=== PATIENT | female | born 1985 | race Caucasian/White ===

== ENCOUNTER 2018-07-14 16:36 | Emergency (ER) | payer SELFPAY ==
[~2018-07-14] VITALS: Ht 152.4 cm; Wt 59.0 kg
[2018-07-14 17:39] LABS: BASOPHILS # (AUTO) 0.1 10^3/uL (0.0-0.1); BASOPHILS % (AUTO) 1 % (0-10); EOSINOPHILS # (AUTO) 0.5 10^3/uL (0.0-0.3); EOSINOPHILS % (AUTO) 4 % (0-10); HEMATOCRIT 39 % (35-52); HEMOGLOBIN 13.2 G/DL (11.5-16.0); LYMPHOCYTES # (AUTO) 3.5 X 10^3 (1.0-4.0); LYMPHOCYTES % (AUTO) 33 % (12-44); MEAN CORPUSCULAR HEMOGLOBIN 30 PG (25-34); MEAN CORPUSCULAR HGB CONC 34 G/DL (32-36); MEAN CORPUSCULAR VOLUME 87 FL (80-99); MEAN PLATELET VOLUME 9.9 FL (7.4-10.4); MONOCYTES # (AUTO) 0.6 X 10^3 (0.0-1.0); MONOCYTES % (AUTO) 6 % (0-12); NEUTROPHILS % (AUTO) 57 % (42-75); PLATELET COUNT 372 10^3/uL (130-400); RED BLOOD COUNT 4.45 10^6/uL (4.35-5.85); RED CELL DISTRIBUTION WIDTH 13.9 % (10.0-14.5); WHITE BLOOD COUNT 10.6 10^3/uL (4.3-11.0)
[2018-07-14 17:44] LABS: BILIRUBIN,URINE NEGATIVE (NEGATIVE); COLOR,URINE YELLOW; GLUCOSE, URINE (UA) NEGATIVE (NEGATIVE); KETONES,URINE NEGATIVE (NEGATIVE); LEUKOCYTE ESTERASE ,URINE 2+ (NEGATIVE); NITRITE,URINE NEGATIVE (NEGATIVE); PH,URINE 6 (5-9); PROTEIN,URINE 1+ (NEGATIVE); UROBILINOGEN,URINE NORMAL (NORMAL)
[2018-07-14 17:45] LABS: BACTERIA,URINE TRACE /HPF; CLARITY,URINE SLIGHTLY CLOUDY; RBC,URINE RARE /HPF; SQUAMOUS EPITHELIAL CELL,UR 25-50 /HPF
[2018-07-14 17:54] LABS: ALANINE AMINOTRANSFERASE 26 U/L (0-55); ALBUMIN 4.7 GM/DL (3.2-4.5); ALKALINE PHOSPHATASE 65 U/L (40-136); BILIRUBIN,TOTAL 0.3 MG/DL (0.1-1.0); BUN/CREATININE RATIO 16; CALCIUM 9.5 MG/DL (8.5-10.1); CARBON DIOXIDE 26 MMOL/L (21-32); CHLORIDE 103 MMOL/L (98-107); CREATININE SERUM 0.77 MG/DL (0.60-1.30); GFR ESTIMATED > 60; GLUCOSE 87 MG/DL (70-105); LIPASE 19 U/L (8-78); POTASSIUM 4.6 MMOL/L (3.6-5.0); SODIUM 138 MMOL/L (135-145); TOTAL PROTEIN 8.1 GM/DL (6.4-8.2)
--- NOTE | 2018-07-14 17:58 | ED GU-Female ---
General Chief Complaint: Abdominal/GI Problems Stated Complaint: BACK PAIN,ABD PAIN Nursing Triage Note: pt presents to ed with complaints of lower badominal pain and back pain x 2 days along with OJEDA. Pt reports she had a spontaneous miscarriage aprox 15 days ago at aprox 5 weeks along. Reports she was seen at a hospital in [place] and given "pills" to help. Pt reprots she is still having some small amount of bleeding but denies odor. Nursing Sepsis Screen: No Definite Risk Source: patient, spouse Exam Limitations: language barrier (language line used to communicate with the patient.) History of Present Illness Date Seen by Provider: Jul 14, 2018 Time Seen by Provider: 17:57 Initial Comments 33-year-old female patient presents to the emergency department with complaints of lower abdominal pain and right upper back pain for 2 days along with a headache. Patient reports having a spontaneous miscarriage approximately 15 days ago with subsequent D&C for retained products of conception while in [place]. She states the hospital gave her ibuprofen to take for the pain. She is currently traveling with her significant other to [place]. She does have a small amount of vaginal bleeding. Patient states she has not been eating and drinking much due to nausea the last 2 days. Timing/Duration: getting worse, other (2 day onset) Severity/Quality: aching, cramping Location: other (lower abdominal pain and right upper back pain) Radiation: other (right upper back.) Activities at Onset: none Prior Genitourinary Problems: none Modifying Factors: Improves With Breathing (right upper back pain worse with taking a deep breath.); Worsens With Palpation (abdominal pain worse with palpation.) Associated Symptoms: abdominal pain; No diaphoresis, No dysuria, No fever/ chills, No loss of bladder control, No lower back pain, No mass, No polyuria, No swelling, No urinary frequency Allergies and Home Medications Allergies Coded Allergies: No Known Drug Allergies (Unverified , 07/14/18) Home Medications Cephalexin 500 Mg Capsule, 500 MG PO TID Prescribed by: YANELIS COLEMAN on 07/14/182026 Naproxen 500 Mg Tablet, 500 MG PO BID PRN for pain Prescribed by: YANELIS COLEMAN on 07/14/182026 Ondansetron 8 Mg Tab.rapdis, 8 MG PO Q6H PRN for NAUSEA/VOMITING Prescribed by: YANELIS COLEMAN on 07/14/182026 Phenazopyridine HCl 200 Mg Tablet, 1 TAB PO TID Prescribed by: YANELIS COLEMAN on 07/14/182026 Patient Home Medication List Home Medication List Reviewed: Yes Review of Systems Review of Systems Constitutional: No chills, No diaphoresis; dizziness (mild dizziness and lightheadedness with standing); No fever, No malaise Respiratory: see HPI; No cough, No dyspnea on exertion, No orthopnea, No phlegm , No short of breath, No wheezing Cardiovascular: No chest pain, No palpitations, No syncope Gastrointestinal: see HPI, abdominal pain; No constipation, No diarrhea; loss of appetite; No melena; nausea; No vomiting Genitourinary: denies burning, denies discharge, denies dysuria, denies frequency, denies flank pain, denies hematuria; pain (suprapubic abdominal pain. ), other (slight vaginal bleeding.) : No Musculoskeletal: see HPI, back pain Skin: no symptoms reported Psychiatric/Neurological: No Symptoms Reported All Other Systemes Reviewed Negative Unless Noted: Yes (Negative excepted noted.) Past Degtnwc-Jjeaij-Lulefz Hx Past Med/Social Hx: Reviewed and Corrections made Patient Social History Alcohol Use: Denies Use Recreational Drug Use: No Smoking Status: Current Everyday Smoker Type Used: Cigarettes Recent Foreign Travel: No Contact w/Someone Who Travel: No Recent Infectious Disease Expo: No Recent Hopitalizations: No Past Medical History Surgeries: Yes (D&C 15 days ago for spontaneous miscarriage.) Respiratory: No Cardiac: No Neurological: No : No Hx : 1 Hx Para: 0 Hx Total # of Abortions (Sp): 1 Genitourinary: No Gastrointestinal: No Musculoskeletal: No Endocrine: No HEENT: No Cancer: No Psychosocial: No Integumentary: No Blood Disorders: No Family Medical History Reviewed Nursing Family Hx No Pertinent Family Hx Physical Exam Vital Signs Vital Signs - First Documented 07/14/18 17:11 Temp 97.5 Pulse 67 Resp 20 B/P (MAP) 118/83 (95) Pulse Ox 99 Capillary Refill : Less Than 3 Seconds Height, Weight, BMI Height: 5'" Weight: 130lbs. oz. 58.946873qm; BMI Method:Stated General Appearance: WD/WN, no apparent distress HEENT: PERRL/EOMI, pharynx normal Neck: supple, normal inspection Cardiovascular: normal peripheral pulses, regular rate, rhythm, no edema, no gallop, no murmur Respiratory: lungs clear, normal breath sounds, no respiratory distress, no accessory muscle use Gastrointestinal: normal bowel sounds, soft, no organomegaly, no pulsatile mass ; No distended; guarding (mild guarding to the RUQ and suprapubically); No rebound; tenderness (generalized abdominal tenderness) Back: normal inspection, no CVA tenderness, other (very mild TTP to the right upper back.) Extremities: no pedal edema, no calf tenderness, normal capillary refill Neurologic/Psychiatric: alert, normal mood/affect, oriented x 3 Skin: normal color, warm/dry Progress/Results/Core Measures Suspected Sepsis Recent Fever Within 48 Hours: No Infection Criteria Present: None New/Unexplained Altered Menta: No Sepsis Screen: No Definite Risk SIRS Temperature:97.5 Pulse: 67 Respiratory Rate: 20 Laboratory Tests 07/14/18 17:23: White Blood Count 10.6 Blood Pressure 118 /83 Mean: 95 Laboratory Tests 07/14/18 17:23: Creatinine 0.77, Platelet Count 372, Total Bilirubin 0.3 Results/Orders Lab Results Laboratory Tests Test 07/14/18 17:23 07/14/18 17:29 Range/Units White Blood Count 10.6 4.3-11.0 10^3/uL Red Blood Count 4.45 4.35-5.85 10^6/uL Hemoglobin 13.2 11.5-16.0 G/DL Hematocrit 39 35-52 % Mean Corpuscular Volume 87 80-99 FL Mean Corpuscular Hemoglobin 30 25-34 PG Mean Corpuscular Hemoglobin Concent 34 32-36 G/DL Red Cell Distribution Width 13.9 10.0-14.5 % Platelet Count 372 130-400 10^3/uL Mean Platelet Volume 9.9 7.4-10.4 FL Neutrophils (%) (Auto) 57 42-75 % Lymphocytes (%) (Auto) 33 12-44 % Monocytes (%) (Auto) 6 0-12 % Eosinophils (%) (Auto) 4 0-10 % Basophils (%) (Auto) 1 0-10 % Neutrophils # (Auto) 6.0 1.8-7.8 X 10^3 Lymphocytes # (Auto) 3.5 1.0-4.0 X 10^3 Monocytes # (Auto) 0.6 0.0-1.0 X 10^3 Eosinophils # (Auto) 0.5 H 0.0-0.3 10^3/uL Basophils # (Auto) 0.1 0.0-0.1 10^3/uL Sodium Level 138 135-145 MMOL/L Potassium Level 4.6 3.6-5.0 MMOL/L Chloride Level 103 98-107 MMOL/L Carbon Dioxide Level 26 21-32 MMOL/L Anion Gap 9 5-14 MMOL/L Blood Urea Nitrogen 12 7-18 MG/DL Creatinine 0.77 0.60-1.30 MG/DL Estimat Glomerular Filtration Rate > 60 BUN/Creatinine Ratio 16 Glucose Level 87 70-105 MG/DL Calcium Level 9.5 8.5-10.1 MG/DL Corrected Calcium 8.5-10.1 MG/DL Total Bilirubin 0.3 0.1-1.0 MG/DL Aspartate Amino Transf (AST/SGOT) 17 5-34 U/L Alanine Aminotransferase (ALT/SGPT) 26 0-55 U/L Alkaline Phosphatase 65 40-136 U/L Total Protein 8.1 6.4-8.2 GM/DL Albumin 4.7 H 3.2-4.5 GM/DL Lipase 19 8-78 U/L Human Chorionic Gonadotropin, Quant 56 H <5 MIU/ML Urine Color YELLOW Urine Clarity SLIGHTLY CLOUDY Urine pH 6 5-9 Urine Specific [place] 1.010 L 1.016-1.022 Urine Protein 1+ H NEGATIVE Urine Glucose (UA) NEGATIVE NEGATIVE Urine Ketones NEGATIVE NEGATIVE Urine Nitrite NEGATIVE NEGATIVE Urine Bilirubin NEGATIVE NEGATIVE Urine Urobilinogen NORMAL NORMAL MG/DL Urine Leukocyte Esterase 2+ H NEGATIVE Urine RBC (Auto) 5+ H NEGATIVE Urine RBC RARE /HPF Urine WBC 5-10 H /HPF Urine Squamous Epithelial Cells 25-50 H /HPF Urine Crystals NONE /LPF Urine Bacteria TRACE /HPF Urine Casts NONE /LPF Urine Mucus NEGATIVE /LPF Urine Culture Indicated NO My Orders Orders - YANELIS COLEMAN Urine Bedside (07/14/18 17:24) Hcg,Quantitative (07/14/18 17:56) Ct Abdomen/Pelvis W (07/14/18 18:24) Saline Lock/Iv-Start (07/14/18 18:24) Ketorolac Injection (Toradol Injection) (07/14/18 18:24) Ondansetron Injection (Zofran Injectio (07/14/18 18:30) Ns Iv 1000 Ml (Sodium Chloride 0.9%) (07/14/18 18:24) Chest Pa/Lat (2 View) (07/14/18 18:25) Iohexol Injection (Omnipaque 350 Mg/Ml 1 (07/14/18 18:45) Contrast Received (Contrast Received) (07/14/18 18:45) Ns (Ivpb) (Sodium Chloride 0.9% Ivpb Bag (07/14/18 18:45) Urine Culture (07/14/18 20:29) Rx-Ondansetron Po (Rx-Zofran Po) (07/14/18 20:41) Rx-Tramadol Hcl (Rx-Ultram) (07/14/18 20:41) Cephalexin Capsule (Keflex Capsule) (07/14/18 20:45) Medications Given in ED Current Medications Medications Dose Ordered Sig/Ramy Route Start Time Stop Time Status Last Admin Dose Admin Cephalexin HCl 500 mg ONCE ONCE PO 07/14/18 20:45 07/14/18 20:46 DC 07/14/18 20:51 500 MG Ondansetron HCl 4 mg ONCE ONCE IVP 07/14/18 18:30 07/14/18 18:31 DC 18 18:35 4 MG Sodium Chloride 1,000 ml @ 0 mls/hr Q0M ONCE IV 07/14/18 18:24 07/14/18 18:25 DC 07/14/18 18:35 1,000 MLS/HR Vital Signs/I&O 07/14/18 17:11 Temp 97.5 Pulse 67 Resp 20 B/P (MAP) 118/83 (95) Pulse Ox 99 Capillary Refill : Less Than 3 Seconds Blood Pressure Mean: 95 Point of Care Testing Urine -Bedside: Positive Diagnostic Imaging Diagonstic Imaging: Xray Plain Films/CT/US/NM/MRI: chest Comments CHEST PA/LAT (2 VIEW) Clinical indication: Patient is having upper right back pain status post surgery. Patient with D C miscarriage approximately 2 weeks ago. Exam: Chest x-ray PA and lateral views. Comparisons: None. Findings: Lungs/ pleura: Lungs are clear. There is no pneumothorax. There is no pleural effusion. Mediastinum: Unremarkable. Pulmonary vasculature: Unremarkable. Heart : Unremarkable. Bones/extrathoracic soft tissue: Unremarkable. There is note of excreted contrast within the renal collecting system. Impression: There is no radiographic evidence of acute cardiopulmonary process. Dictated on workstation # [id number] Reviewed: Reviewed by Me (radiology report reviewed by me) Diagonstic Imaging: CT Plain Films/CT/US/NM/MRI: abdomen, pelvis Comments CT ABDOMEN/PELVIS W PROCEDURE: CT abdomen and pelvis with contrast. TECHNIQUE: Multiple contiguous axial images were obtained through the abdomen and pelvis after administration of intravenous contrast. INDICATION: Lower abdominal pain, recent miscarriage with D C Lung bases are clear. Liver appears normal. Gallbladder is present. Pancreas appears normal. Spleen is not enlarged. Kidneys and adrenals appear normal. There is a nabothian cyst in the cervix. Adnexa appears normal. There is no intraperitoneal free air or free fluid. Large and small intestines appear normal. IMPRESSION: Negative CT abdomen and pelvis Dictated by: Dictated on workstation # [id number] Reviewed: Reviewed by Me (radiology report reviewed by me) Departure Communication (Admissions) Patient seen and evaluated. Initial labs obtained. Quantitative hCG is consistent with patient's history of miscarriage and subsequent D&C. I discussed plan for a chest x-ray and CT abdomen/pelvis. Patient verbalizes understanding and wishes to proceed with these studies. All laboratory and diagnostic findings discussed with the patient. Patient verbalizes improvement with Toradol, Zofran, and IV fluids. We'll plan for discharge to home with patient to follow-up with the physician of her choice upon her arriving to [place]. She'll call Tuesday morning for an appointment time. She also go to the nearest emergency department if symptoms worsen or any other concerns. Impression Primary Impression: Urinary tract infection Qualified Codes: N30.00 - Acute cystitis without hematuria Additional Impressions: Nausea alone History of miscarriage Disposition: HOME, SELF-CARE Condition: Improved Departure-Patient Inst. Decision time for Depature: 20:27 Patient Instructions: Acute Abdomen (Belly Pain), Adult (DC), Urinary Tract Infection, Adult (DC) Add. Discharge Instructions: All discharge instructions reviewed with patient and/or family. Voiced understanding. Medications as instructed. Tylenol extra strength [id number] as directed for pain. Push fluids including Gatorade, broth, Sprite or 7-Up, popsicles, Jell-O, etc. Follow-up with the physician of your choice when you arrive to [place]. Call for an appointment Tuesday. Go to the nearest emergency department immediately for worsened pain, fever, vomiting, abdominal swelling, shortness of air, chest pain, dizziness, vaginal discharge, or any other concerns. Scripts Naproxen (Naprosyn) 500 Mg Tablet 500 MG PO BID PRN for pain, #20 TAB 0 Refills Prov: YANELIS COLEMAN 07/14/18 Phenazopyridine HCl (Pyridium) 200 Mg Tablet 1 TAB PO TID, #14 TAB 0 Refills Prov: YANELIS COLEMAN 07/14/18 Ondansetron (Ondansetron Odt) 8 Mg Tab.rapdis 8 MG PO Q6H PRN for NAUSEA/VOMITING, #10 TAB 0 Refills Prov: YANELIS COLEMAN 07/14/18 Cephalexin (Cephalexin) 500 Mg Capsule 500 MG PO TID, #21 CAP 0 Refills Prov: YANELIS COLEMAN 07/14/18 YANELIS COLEMAN Jul 14, 2018 17:58
[2018-07-14] MEDS ORDERED: KETOROLAC 30 MG/ML VIAL IVP STA (18:24)
[2018-07-14] MEDS ORDERED: NS IV 1000 ML 1,000 ML IV ONE (18:24)
[2018-07-14] MEDS ORDERED: ONDANSETRON 4 MG/2 ML (SDV) Z0FRAN IVP ONE (18:30)
[2018-07-14] MEDS ORDERED: NS 100 ML (IVPB) BAG IV ONE (18:45)
[2018-07-14] MEDS ORDERED: IOHEXOL 350 MG/ML 100 ML (OMNIPAQUE 350) VIAL IV ONE (18:45)
[2018-07-14] MEDS ORDERED: RECEIVED CONTRAST (Hold Metformin) IV SCH (18:45)
--- NOTE | 2018-07-14 19:20 | Diagnostic Imaging Report ---
PROCEDURE: CT abdomen and pelvis with contrast. TECHNIQUE: Multiple contiguous axial images were obtained through the abdomen and pelvis after administration of intravenous contrast. INDICATION: Lower abdominal pain, recent miscarriage with D&C Lung bases are clear. Liver appears normal. Gallbladder is present. Pancreas appears normal. Spleen is not enlarged. Kidneys and adrenals appear normal. There is a nabothian cyst in the cervix. Adnexa appears normal. There is no intraperitoneal free air or free fluid. Large and small intestines appear normal. IMPRESSION: Negative CT abdomen and pelvis Dictated by: Dictated on workstation # [id number]
--- NOTE | 2018-07-14 19:31 | Diagnostic Imaging Report ---
Clinical indication: Patient is having upper right back pain status post surgery. Patient with D&C miscarriage approximately 2 weeks ago. Exam: Chest x-ray PA and lateral views. Comparisons: None. Findings: Lungs/pleura: Lungs are clear. There is no pneumothorax. There is no pleural effusion. Mediastinum: Unremarkable. Pulmonary vasculature: Unremarkable. Heart: Unremarkable. Bones/extrathoracic soft tissue: Unremarkable. There is note of excreted contrast within the renal collecting system. Impression: There is no radiographic evidence of acute cardiopulmonary process. Dictated by: Dictated on workstation # [id number]
[2018-07-14] MEDS ORDERED: CEPH500C PO (20:27)
[2018-07-14] MEDS ORDERED: NAPR-1071 PO (20:27)
[2018-07-14] MEDS ORDERED: PHEN-640 PO (20:27)
[2018-07-14] MEDS ORDERED: ONDA8TAB13 PO (20:27)
[2018-07-14] MEDS ORDERED: RX-TRAMADOL 50 MG (ULTRAM) TAB PPK#4 PO STA (20:41)
[2018-07-14] MEDS ORDERED: RX-ONDANSETRON 4 MG ODT (ZOFRAN) PPK #4 PO STA (20:41)
[2018-07-14] MEDS ORDERED: CEPHALEXIN 250 MG (KEFLEX) CAP PO ONE (20:45)
[2018-07-14 21:04] VITALS: BP 128/75
== END 2018-07-14 21:04 | disposition home or self-care (01) ==
LOC: ER 16:38
DX: N39.0 Urinary tract infection, site not specified (principal); F17.210 Nicotine dependence, cigarettes, uncomplicated; Z87.59 Personal history of other complications of pregnancy, childbirth and the puerperium
CPT/HCPCS: 36415; 71046; 74177; 80053; 81000; 83690; 84702; 84703; 85025; 87088